=== PATIENT | female | born 1985 | race Caucasian/White ===

== ENCOUNTER 2018-11-14 18:46 | Emergency (ER) | payer MEDICAID, OTHER ==
[~2018-11-14] VITALS: Ht 162.6 cm; Wt 86.2 kg
[2018-11-14] MEDS ORDERED: NKM (19:06)
[2018-11-14 19:13] VITALS: BP 124/85
--- NOTE | 2018-11-14 19:15 | Emergency Room Report ---
History of Present Illness General Chief Complaint: General Complaint Source: Patient Present Illness HPI 33-year-old female presents to the emergency department complaining of overwhelming feeling of anxiousness, shakiness, numbness and tingling in the bilateral hands nose and perioral area. Patient also reports at one point her hands were cramping closed and she was unable to relax him. Patient denies previous history of similar symptoms in the past she denies having chest pain she states that she was breathing somewhat quicker than normal. Patient denies increase in stress or any traumatic event recently. She denies palpitations, weakness, headache, syncope or near-syncope. Patient denies significant past medical history she denies suspicion of . She denies pain , nausea or vomiting. Denies hot flashes, rapid weight loss, night sweats or drug use. Allergies: Coded Allergies: No Known Allergies (Unverified , 11/14/18) Patient History Past Medical History: see triage record Past Surgical History: none Pertinent Family History: none Last Menstrual Period: 11/14/2018 Now: No Reviewed Nursing Documentation: PMH: Agreed; PSxH: Agreed Nursing Documentation-PMH Past Medical History: No Stated History Review of Systems All Other Systems: negative except mentioned in HPI Physical Exam Vital Signs Date Time Temp Pulse Resp B/P (MAP) Pulse Ox O2 Delivery O2 Flow Rate FiO2 11/14/18 19:01 98.1 89 16 97 Room Air Sp02 EP Interpretation: reviewed, normal General Appearance: alert, GCS 15, non-toxic, mild distress Head: normocephalic, atraumatic Eyes: bilateral eye normal inspection, bilateral eye PERRL ENT: hearing grossly normal, normal voice Neck: full range of motion Respiratory: chest non-tender, lungs clear, normal breath sounds, no respiratory distress, no wheezing, speaking full sentences Cardiovascular #1: regular rate, rhythm Gastrointestinal: non tender, soft Musculoskeletal: back normal, gait/station normal, normal range of motion, non- tender Neurologic: alert, oriented x3, responsive, motor strength/tone normal, sensory intact, normal gait, speech normal, grossly normal Psychiatric: judgement/insight normal, memory normal, anxious Skin: normal color, no rash, warm/dry, well hydrated Medical Decision Making PA Attestation Dr. Arreola is my supervising Physician whom patient management has been discussed with. Diagnostic Impression: Primary Impression: Anxious reaction Additional Impression: Hyperventilation syndrome ER Course 33-year-old female presents to the emergency department complaining of overwhelming feeling of anxiousness, shakiness, numbness and tingling in the bilateral hands nose and perioral area. Patient also reports at one point her hands were cramping closed and she was unable to relax him. Patient denies previous history of similar symptoms in the past she denies having chest pain she states that she was breathing somewhat quicker than normal. Patient denies increase in stress or any traumatic event recently. She denies palpitations, weakness, headache, syncope or near-syncope. Patient denies significant past medical history she denies suspicion of . She denies pain , nausea or vomiting. Denies hot flashes, rapid weight loss, night sweats or drug use. Ddx considered but are not limited to anxiety, [place], PE, asthma, thyroid storm, hyperthyroid, EPS Vital signs: are WNL, pt. is afebrile H&PE are most consistent with anxiety attack ORDERS: -UDS: NEGATIVE -Urine HCG: NEGATIVE ED INTERVENTIONS: - 1mg Ativan DISCHARGE: At this time pt. is stable for d/c to home. Will provide printed patient care instructions, and any necessary prescriptions. Care plan and follow up instructions have been discussed with the patient prior to discharge. Labs Test 11/14/18 19:20 11/14/18 19:48 Urine HCG, Qualitative Negative (NEGATIVE) Urine Opiates Screen Negative (NEGATIVE) Urine Barbiturates Screen Negative (NEGATIVE) Phencyclidine (PCP) Screen Negative (NEGATIVE) Urine Amphetamines Screen Negative (NEGATIVE) Urine Benzodiazepines Screen Negative (NEGATIVE) Urine Cocaine Screen Negative (NEGATIVE) Urine Marijuana (THC) Screen Negative (NEGATIVE) Last Vital Signs Date Time Temp Pulse Resp B/P (MAP) Pulse Ox O2 Delivery O2 Flow Rate FiO2 11/14/18 19:01 98.1 89 16 97 Room Air Status: improved Disposition: HOME, SELF-CARE Condition: Stable Scripts Lorazepam* (ATIVAN*) 0.5 Mg Tablet 0.5 MG ORAL THREE TIMES A DAY, #10 TAB Prov: Greer Izaguirre 11/14/18 Ref[facility] [place] Additional Instructions: Take medications as directed. Follow up with a Primary Care Provider in 3-5 days, even if your symptoms have resolved. --Please review list of primary care clinics, if you do not already have a primary care provider Return sooner to ED if new symptoms occur, or current symptoms become worse. Do not drink alcohol, drive, or operate heavy machinery while taking Ativan as this may cause drowsiness. - Please note that this Emergency Department Report was dictated using [employer] technology software, occasionally this can lead to erroneous entry secondary to interpretation by the dictation equipment. Greer Izaguirre November 14, 2018 19:15
--- NOTE | 2018-11-14 19:17 | NUR ---
ED Nurse Note: Patient walked in to ER with son c/o tingling sensation on face and both hands which started at 1200 today. pt aao x4 and ambulatory. skin clean and intact. no s/s of stroke at this moment. face symetrical, no drooping face, arms and feet strength equal, no slurred speech noted. calm and cooperative. pt denied V/D but nausea.
[2018-11-14] MEDS ORDERED: LORazepam 1mg tab ORAL ONE (20:00)
[2018-11-14] MEDS ORDERED: ATIVAN0.5 MG ORAL (21:10)
[2018-11-14 21:30] VITALS: BP 144/71
--- NOTE | 2018-11-14 21:30 | NUR ---
ER DISCHARGE NOTE: Patient is cleared to be discharged per ERPA, pt is aox4, accompanied by family member, on room air, with stable vital signs. pt was given dc and prescription instructions, pt was able to verbalize understanding, pt id band removed. pt is able to ambulate with steady gait. pt took all belongings.
== END 2018-11-14 21:30 | disposition home or self-care (01) ==
LOC: EMR 19:35
DX: F41.9 Anxiety disorder, unspecified (principal); F45.8 Other somatoform disorders
CPT/HCPCS: 80307; 81025; 99283